=== PATIENT | male | born 1940 | race Caucasian/White ===

== ENCOUNTER 2018-07-16 11:53 | Outpatient (CLI) | payer MEDICARE ==
--- NOTE | 2018-07-16 12:24 | RAD ---
LEFT HIP TWO VIEWS: History: hip pain FINDINGS: Mild joint space narrowing. Moderate osteophytosis. Femoral head contours are maintained. No acute fr acture, dislocation, or aggressive osseous erosions. IMPRESSION: Mild osteoarthritic changes left hip. POS: RADHA
--- NOTE | 2018-07-16 12:28 | RAD ---
AP PELVIS ONE VIEW: History: Pelvic pain. FINDINGS: Mild degenerative changes of the hips. Degenerative changes lower lumbar spine partially visualized. Sacral ala and pelvic rings are intact. IMPRESSION: No acute osseous abnormalities are demonstrated. POS: RADHA
== END 2018-07-16 11:54 | disposition home or self-care (01) ==
LOC: MADRAD 11:53
PROVIDERS: ATTEND General Practice
DX: M25.552 Pain in left hip (principal); M16.12 Unilateral primary osteoarthritis, left hip
CPT/HCPCS: 72170

== ENCOUNTER 2021-05-29 18:15 | Inpatient (IN) | payer MEDICARE ==
[2021-05-29] MEDS ORDERED: Acetaminophen 325 MG TAB ONE (18:32)
[2021-05-29] MEDS ORDERED: Acetaminophen 650 MG Suppository ONE (18:34)
[2021-05-29 19:25] LABS: ALT (SGPT) 18 U/L (8-55); AST (SGOT) 22 U/L (5-34); Albumin 3.8 g/dL (3.4-4.8); Alkaline Phosphatase 58 U/L (40-110); Anion Gap 14 mmol/L (10-20); BUN (Urea Nitrogen) 31 mg/dL (8.4-25.7); Calc. Creatinine Clearance 0 mL/min (70-130); Calcium 10.1 mg/dL (7.8-10.44); Carbon Dioxide 27 mmol/L (23-31); Chloride 103 mmol/L (98-107); Globulin 3.4 g/dL (2.4-3.5); Glucose 292 mg/dL (83-110); Potassium 3.7 mmol/L (3.5-5.1); Protein, Total 7.2 g/dL (5.8-8.1); Sodium 140 mmol/L (136-145)
[2021-05-29 19:32] LABS: Band 11 % (5-11); Hemoglobin 16.1 g/dL (14.0-18.0); Lymphocytes 8 % (21-51); MDiff Complete? YES; Mean Corpuscular HGB CONC 33.5 g/dL (32.0-36.0); Mean Corpuscular Hemoglobin 32.7 pg (27.0-31.0); Mean Corpuscular Volume 97.4 fL (78.0-98.0); Mean Platelet Volume 9.6 fL (7.4-10.4); Monocytes 4 % (0-10); Neutrophil 77 % (42-75); Platelet Count 105 thou/uL (130-400); Platelet Morphology Comment Appears Decreased; RBC Distribution Width 11.7 % (11.5-14.5); RBC Morphology Normal; Red Blood Cell (RBC) Count 4.94 mill/uL (4.70-6.10); White Blood Cell (WBC) Count 3.4 thou/uL (4.8-10.8)
[2021-05-29 19:58] LABS: Bilirubin Negative (Negative); Blood, Urine Moderate (Negative); Clarity Slightly Cloudy (Clear); Glucose, Urine (Dipstick) >=1000 mg/dL (Negative); Ketone, Urine 15 mg/dL (Negative); Leukocyte Negative (Negative); Nitrite Negative (Negative); Protein, Urine (Dipstick) 100 mg/dL (Neg-Trace)
[2021-05-29] MEDS ORDERED: Sodium Chloride 0.9% 2,000 ML ONE (19:58)
[2021-05-29] MEDS ORDERED: Vancomycin HCl 500 MG VIAL ONE (19:58)
[2021-05-29] MEDS ORDERED: Azithromycin 500 MG VIAL ONE (20:00)
[2021-05-29] MEDS ORDERED: Sodium Chloride 0.9% 100 ML ONE (20:00)
[2021-05-29 20:04] LABS: Bacteria/HPF Rare-Few HPF (None Seen); Mucous/LPF 2+ LPF (<2+); WBC/HPF 0-3 HPF (0-3)
[2021-05-29] MEDS ORDERED: Cefepime 2 GM VIAL ONE (20:05)
[2021-05-29] MEDS ORDERED: Dextrose 5% in Water 250 ML ONE (20:05)
[2021-05-29 20:28] LABS: SARS-CoV-2 NAA Rapid Test Not Detected (NotDetected)
[2021-05-30] MEDS ORDERED: Acetaminophen 650 MG Suppository PR PRN (00:55)
[2021-05-30] MEDS ORDERED: Acetaminophen 325 MG TAB PO PRN (00:55)
[2021-05-30] MEDS ORDERED: Ondansetron PF 4 MG/2 ML Vial IVP PRN (00:56)
[2021-05-30] MEDS ORDERED: Senokot S 8.6-50 MG TAB PO PRN (00:57)
[2021-05-30] MEDS ORDERED: HYDROcodone/Acetaminophen 5/325 mg Tablet PO PRN ×2 (01:00)
[2021-05-30 01:07] VITALS: BMI 21.6
[2021-05-30] MEDS: Sodium Chloride 0.9% 1,000 ML IV SCH ×4 (01:28→23:08)
[2021-05-30] MEDS ORDERED: cefTRIAXone\\ROCEPHIN 1 GM in Sodium Chloride 0.9% 100 ML IVPB SCH (02:00)
[2021-05-30] MEDS: cefTRIAXone\\ROCEPHIN 1 GM in Sodium Chloride 0.9% 100 ML IVPB SCH (03:00)
[2021-05-30 05:38] LABS: Lactic Acid 1.2 mmol/L (0.5-2.2)
[2021-05-30 05:42] LABS: Anion Gap 9 mmol/L (10-20); BUN (Urea Nitrogen) 26 mg/dL (8.4-25.7); Calc. Creatinine Clearance 77 mL/min (70-130); Calcium 8.8 mg/dL (7.8-10.44); Carbon Dioxide 27 mmol/L (23-31); Chloride 109 mmol/L (98-107); Glucose 200 mg/dL (83-110); Potassium 3.4 mmol/L (3.5-5.1); Sodium 142 mmol/L (136-145)
[2021-05-30 05:43] LABS: MDiff Complete? YES; Mean Corpuscular HGB CONC 34.8 g/dL (32.0-36.0); Mean Corpuscular Hemoglobin 33.5 pg (27.0-31.0); Mean Corpuscular Volume 96.1 fL (78.0-98.0); Mean Platelet Volume 8.6 fL (7.4-10.4); Platelet Count 90 thou/uL (130-400); RBC Distribution Width 11.4 % (11.5-14.5); White Blood Cell (WBC) Count 3.5 thou/uL (4.8-10.8)
[2021-05-30 05:44] LABS: Anisocytosis SLIGHT = 6-15 cells (100X) (0-5/hpf); Lymphocytes 19 % (21-51); Monocytes 6 % (0-10); Neutrophil 75 % (42-75); Platelet Morphology Comment Appears Adequate
[2021-05-30] MEDS: Levothyroxine Sodium 88 MCG TAB PO SCH (06:43)
[2021-05-30] MEDS: Dorzolamide HCl 2% Ophth Soln 10 ml Bottle EA EYE SCH (09:06)
[2021-05-30] MEDS ORDERED: Dextrose 50% Abboject 50 ML SYRINGE SLOW IVP PRN (09:07)
[2021-05-30] MEDS: Brimonidine Tartrate 0.2% Ophth Soln 5 ml Bottle EA EYE SCH (09:23)
[2021-05-30] MEDS: Loratadine 10 MG TAB PO SCH (09:41)
[2021-05-30] MEDS: Multivitamin W/ Minerals 1 TAB PO SCH (09:41)
[2021-05-30] MEDS: Timolol 0.5% Ophth Soln 5 ml Bottle EA EYE SCH ×2 (09:42→20:27)
[2021-05-30] MEDS: Azithromycin 500 MG in Sodium Chloride 0.9% 250 ML 250 ML IVPB SCH (20:20)
[2021-05-30] MEDS ORDERED: Azithromycin 500 MG VIAL ONE (20:21)
[2021-05-30] MEDS: Rosuvastatin 10 MG TAB PO SCH (20:27)
[2021-05-30] MEDS: Latanoprost 0.005% Ophth Soln 2.5 ml Bottle EA EYE SCH (20:27)
[2021-05-31] MEDS: cefTRIAXone\\ROCEPHIN 1 GM in Sodium Chloride 0.9% 100 ML IVPB SCH (03:22)
[2021-05-31] MEDS: Levothyroxine Sodium 88 MCG TAB PO SCH (05:22)
[2021-05-31 05:42] LABS: Anion Gap 11 mmol/L (10-20); BUN (Urea Nitrogen) 25 mg/dL (8.4-25.7); Calc. Creatinine Clearance 79 mL/min (70-130); Calcium 8.3 mg/dL (7.8-10.44); Carbon Dioxide 24 mmol/L (23-31); Chloride 112 mmol/L (98-107); Glucose 220 mg/dL (83-110); Potassium 3.3 mmol/L (3.5-5.1); Sodium 144 mmol/L (136-145)
[2021-05-31 05:46] LABS: Hemoglobin 12.9 g/dL (14.0-18.0); Mean Corpuscular HGB CONC 34.8 g/dL (32.0-36.0); Mean Corpuscular Hemoglobin 33.3 pg (27.0-31.0); Mean Corpuscular Volume 95.7 fL (78.0-98.0); Platelet Count 93 thou/uL (130-400); RBC Distribution Width 11.5 % (11.5-14.5); Red Blood Cell (RBC) Count 3.88 mill/uL (4.70-6.10); White Blood Cell (WBC) Count 4.5 thou/uL (4.8-10.8)
[2021-05-31 05:47] LABS: %Eosinophils 0.4 % (0.0-10.0); %Lymphocytes 7.6 % (21.0-51.0); %Monocytes 7.7 % (0.0-10.0); %Neutrophils 83.3 % (42.0-75.0)
[2021-05-31 05:48] LABS: #Lymphocytes 0.3 thou/uL (1.20-3.40); #Monocytes 0.3 thou/uL (0.11-0.59); #Neutrophils 3.7 thou/uL (1.40-6.50)
[2021-05-31] MEDS: Sodium Chloride 0.9% 1,000 ML IV SCH ×2 (06:25→09:13)
[2021-05-31] MEDS: Loratadine 10 MG TAB PO SCH (09:08)
[2021-05-31] MEDS: Dorzolamide HCl 2% Ophth Soln 10 ml Bottle EA EYE SCH (09:08)
[2021-05-31] MEDS: Multivitamin W/ Minerals 1 TAB PO SCH (09:08)
[2021-05-31] MEDS: Timolol 0.5% Ophth Soln 5 ml Bottle EA EYE SCH ×2 (09:08→20:33)
[2021-05-31] MEDS: Brimonidine Tartrate 0.2% Ophth Soln 5 ml Bottle EA EYE SCH (09:09)
[2021-05-31] MEDS: VOLTAREN 50 MG PO SCH ×2 (15:10→20:35)
[2021-05-31] MEDS: GALANTAMINE 8 MG PO SCH ×2 (15:10→20:35)
[2021-05-31] MEDS: Azithromycin 500 MG in Sodium Chloride 0.9% 250 ML 250 ML IVPB SCH (20:33)
[2021-05-31] MEDS: Rosuvastatin 10 MG TAB PO SCH (20:34)
[2021-05-31] MEDS: Latanoprost 0.005% Ophth Soln 2.5 ml Bottle EA EYE SCH (20:34)
[2021-06-01] MEDS: cefTRIAXone\\ROCEPHIN 1 GM in Sodium Chloride 0.9% 100 ML IVPB SCH (03:48)
[2021-06-01] MEDS: Levothyroxine Sodium 88 MCG TAB PO SCH (05:33)
[2021-06-01] MEDS: Multivitamin W/ Minerals 1 TAB PO SCH (09:07)
[2021-06-01] MEDS: Brimonidine Tartrate 0.2% Ophth Soln 5 ml Bottle EA EYE SCH (09:07)
[2021-06-01] MEDS: Loratadine 10 MG TAB PO SCH (09:07)
[2021-06-01] MEDS: GALANTAMINE 8 MG PO SCH ×2 (09:09→20:24)
[2021-06-01] MEDS: VOLTAREN 50 MG PO SCH ×2 (09:09→20:24)
[2021-06-01] MEDS: Timolol 0.5% Ophth Soln 5 ml Bottle EA EYE SCH ×2 (09:09→20:21)
[2021-06-01] MEDS: Dorzolamide HCl 2% Ophth Soln 10 ml Bottle EA EYE SCH (09:11)
[2021-06-01] MEDS ORDERED: clonazePAM 0.5 MG TAB PO PRN (16:31)
[2021-06-01] MEDS: Azithromycin 500 MG in Sodium Chloride 0.9% 250 ML 250 ML IVPB SCH (20:19)
[2021-06-01] MEDS: Latanoprost 0.005% Ophth Soln 2.5 ml Bottle EA EYE SCH (20:21)
[2021-06-01] MEDS: Rosuvastatin 10 MG TAB PO SCH (20:32)
[2021-06-02] MEDS: cefTRIAXone\\ROCEPHIN 1 GM in Sodium Chloride 0.9% 100 ML IVPB SCH (02:24)
[2021-06-02] MEDS: Levothyroxine Sodium 88 MCG TAB PO SCH (04:59)
[2021-06-02 05:44] LABS: #Eosinphils 0.1 thou/uL (0.0-0.7); #Lymphocytes 0.5 thou/uL (1.20-3.40); #Monocytes 0.3 thou/uL (0.11-0.59); #Neutrophils 5.2 thou/uL (1.40-6.50); %Basophils 0.7 % (0.0-1.0); %Eosinophils 1.2 % (0.0-10.0); %Lymphocytes 8.3 % (21.0-51.0); %Monocytes 5.1 % (0.0-10.0); %Neutrophils 84.6 % (42.0-75.0); Hemoglobin 14.1 g/dL (14.0-18.0); Mean Corpuscular HGB CONC 34.9 g/dL (32.0-36.0); Mean Corpuscular Hemoglobin 32.8 pg (27.0-31.0); Mean Corpuscular Volume 94.1 fL (78.0-98.0); Mean Platelet Volume 7.5 fL (7.4-10.4); Platelet Count 123 thou/uL (130-400); RBC Distribution Width 11.3 % (11.5-14.5); Red Blood Cell (RBC) Count 4.31 mill/uL (4.70-6.10); White Blood Cell (WBC) Count 6.1 thou/uL (4.8-10.8)
[2021-06-02 05:56] LABS: Anion Gap 11 mmol/L (10-20); BUN (Urea Nitrogen) 20 mg/dL (8.4-25.7); Calc. Creatinine Clearance 79 mL/min (70-130); Calcium 8.7 mg/dL (7.8-10.44); Carbon Dioxide 28 mmol/L (23-31); Chloride 104 mmol/L (98-107); Glucose 172 mg/dL (83-110); Potassium 3.1 mmol/L (3.5-5.1); Sodium 140 mmol/L (136-145)
[2021-06-02] MEDS: Multivitamin W/ Minerals 1 TAB PO SCH (10:13)
[2021-06-02] MEDS: Loratadine 10 MG TAB PO SCH (10:14)
[2021-06-02] MEDS: Dorzolamide HCl 2% Ophth Soln 10 ml Bottle EA EYE SCH (10:15)
[2021-06-02] MEDS: Timolol 0.5% Ophth Soln 5 ml Bottle EA EYE SCH (10:15)
[2021-06-02] MEDS: GALANTAMINE 8 MG PO SCH (10:19)
[2021-06-02] MEDS: VOLTAREN 50 MG PO SCH (10:19)
[2021-06-02] MEDS: Brimonidine Tartrate 0.2% Ophth Soln 5 ml Bottle EA EYE SCH (10:21)
[2021-06-02] MEDS ORDERED: Potassium Chloride 20 MEQ TAB PO SCH (11:15)
[2021-06-02 13:10] VITALS: BP 102/84; TEMP 97.6
== END 2021-06-02 15:26 | disposition swing bed (61) | DRG 871 ==
LOC: MADERS 18:15 → MADMS 20:54
PROVIDERS: ADMIT Family Medicine; ATTEND Family Medicine
DX: A41.9 Sepsis, unspecified organism (principal); J18.9 Pneumonia, unspecified organism; E87.2 Acidosis; N30.00 Acute cystitis without hematuria; G30.9 Alzheimer's disease, unspecified; F02.80 Dementia in other diseases classified elsewhere, unspecified severity, without behavioral disturbance, psychotic disturbance, mood disturbance, and anxiety; E11.9 Type 2 diabetes mellitus without complications; E03.9 Hypothyroidism, unspecified; E78.2 Mixed hyperlipidemia; R13.10 Dysphagia, unspecified; K22.70 Barrett's esophagus without dysplasia; R26.81 Unsteadiness on feet; H40.9 Unspecified glaucoma; Z79.899 Other long term (current) drug therapy
CPT/HCPCS: 0240U; 36415; 36416; 51702; 71045; 80048; 80053; 81003; 81015; 83605; 85025; 87040; 87086; 96365; 96368; J0456; J0692; J0696; J3370; J3490; J7050; J7070

== ENCOUNTER 2021-06-02 13:21 | Inpatient (IN) | payer MEDICARE ==
[2021-06-02] MEDS ORDERED: Ondansetron ODT 4 MG TAB PO PRN (15:13)
[2021-06-02] MEDS ORDERED: Acetaminophen 325 MG TAB PO PRN (15:13)
[2021-06-02] MEDS: clonazePAM 0.5 MG TAB PO PRN (20:39)
[2021-06-02] MEDS: Famotidine 20 MG TAB PO SCH (20:39)
[2021-06-03] MEDS: Levothyroxine Sodium 88 MCG TAB PO SCH (05:14)
[2021-06-03] MEDS ORDERED: Timolol 0.5% Ophth Soln 5 ml Bottle EA EYE SCH (09:00)
[2021-06-03] MEDS ORDERED: Timolol 0.25% Ophth Soln 5 ml Bottle EA EYE SCH (09:00)
[2021-06-03] MEDS: VOLTAREN PO SCH ×3 (09:21→20:03)
[2021-06-03] MEDS: Rosuvastatin 10 MG TAB PO SCH (09:22)
[2021-06-03] MEDS: Multivit, Therapeutic 1 TAB PO SCH (09:23)
[2021-06-03] MEDS: Potassium Chloride 10 MEQ TAB PO SCH (09:23)
[2021-06-03] MEDS: Famotidine 20 MG TAB PO SCH ×2 (09:23→20:02)
[2021-06-03] MEDS: Timolol 0.5% Ophth Soln 5 ml Bottle EA EYE SCH ×2 (09:24→20:02)
[2021-06-03] MEDS: Loratadine 10 MG TAB PO SCH (09:24)
[2021-06-03] MEDS: Latanoprost 0.005% Ophth Soln 2.5 ml Bottle EA EYE SCH (09:25)
[2021-06-03] MEDS: Brimonidine Tartrate 0.2% Ophth Soln 5 ml Bottle EA EYE SCH (09:25)
[2021-06-03] MEDS: Dorzolamide HCl 2% Ophth Soln 10 ml Bottle EA EYE SCH (09:26)
[2021-06-03] MEDS: clonazePAM 0.5 MG TAB PO PRN (20:01)
[2021-06-04] MEDS: Levothyroxine Sodium 88 MCG TAB PO SCH (05:15)
[2021-06-04] MEDS: Timolol 0.5% Ophth Soln 5 ml Bottle EA EYE SCH ×2 (09:31→21:07)
[2021-06-04] MEDS: Rosuvastatin 10 MG TAB PO SCH (09:32)
[2021-06-04] MEDS: Multivit, Therapeutic 1 TAB PO SCH (09:32)
[2021-06-04] MEDS: Famotidine 20 MG TAB PO SCH ×2 (09:33→21:04)
[2021-06-04] MEDS: Potassium Bicarbonate/Cit Ac 20 MEQ TAB PO SCH ×2 (09:33→10:02)
[2021-06-04] MEDS: Loratadine 10 MG TAB PO SCH (09:33)
[2021-06-04] MEDS: Potassium Chloride 10 MEQ TAB PO SCH (09:34)
[2021-06-04] MEDS: VOLTAREN PO SCH ×2 (09:37→21:07)
[2021-06-04] MEDS: Dorzolamide HCl 2% Ophth Soln 10 ml Bottle EA EYE SCH (09:39)
[2021-06-04] MEDS: Brimonidine Tartrate 0.2% Ophth Soln 5 ml Bottle EA EYE SCH (09:42)
[2021-06-04] MEDS: Latanoprost 0.005% Ophth Soln 2.5 ml Bottle EA EYE SCH (09:42)
[2021-06-04] MEDS ORDERED: Potassium Chloride 20 MEQ TAB PO SCH (10:00)
[2021-06-05] MEDS: Levothyroxine Sodium 88 MCG TAB PO SCH (05:39)
[2021-06-05] MEDS: Bisacodyl 5 MG TAB PO PRN (06:16)
[2021-06-05] MEDS: Brimonidine Tartrate 0.2% Ophth Soln 5 ml Bottle EA EYE SCH (08:32)
[2021-06-05] MEDS: Rosuvastatin 10 MG TAB PO SCH (08:33)
[2021-06-05] MEDS: Dorzolamide HCl 2% Ophth Soln 10 ml Bottle EA EYE SCH (08:33)
[2021-06-05] MEDS: Latanoprost 0.005% Ophth Soln 2.5 ml Bottle EA EYE SCH (08:33)
[2021-06-05] MEDS: Timolol 0.5% Ophth Soln 5 ml Bottle EA EYE SCH ×2 (08:33→20:32)
[2021-06-05] MEDS: Famotidine 20 MG TAB PO SCH ×2 (08:34→20:30)
[2021-06-05] MEDS: Multivit, Therapeutic 1 TAB PO SCH (08:34)
[2021-06-05] MEDS: Potassium Chloride 20 MEQ TAB PO SCH (08:34)
[2021-06-05] MEDS: Loratadine 10 MG TAB PO SCH (08:35)
[2021-06-05] MEDS: VOLTAREN PO SCH ×2 (08:37→20:32)
[2021-06-05] MEDS: clonazePAM 0.5 MG TAB PO PRN (15:27)
[2021-06-05] MEDS ORDERED: clonazePAM 0.5 MG TAB PO SCH (20:30)
[2021-06-05] MEDS: Ketotifen Fumarate 0.025% Ophth Soln 5 ml Bottle EA EYE SCH (20:30)
[2021-06-06] MEDS: Levothyroxine Sodium 88 MCG TAB PO SCH (06:14)
[2021-06-06] MEDS: Bisacodyl 5 MG TAB PO PRN (06:14)
[2021-06-06] MEDS: Famotidine 20 MG TAB PO SCH ×2 (08:29→20:26)
[2021-06-06] MEDS: Loratadine 10 MG TAB PO SCH (08:29)
[2021-06-06] MEDS: Multivit, Therapeutic 1 TAB PO SCH (08:29)
[2021-06-06] MEDS: Potassium Chloride 20 MEQ TAB PO SCH (08:29)
[2021-06-06] MEDS: VOLTAREN PO SCH ×2 (08:30→20:26)
[2021-06-06] MEDS: Brimonidine Tartrate 0.2% Ophth Soln 5 ml Bottle EA EYE SCH (08:31)
[2021-06-06] MEDS: Latanoprost 0.005% Ophth Soln 2.5 ml Bottle EA EYE SCH (08:31)
[2021-06-06] MEDS: Dorzolamide HCl 2% Ophth Soln 10 ml Bottle EA EYE SCH (08:31)
[2021-06-06] MEDS: Timolol 0.5% Ophth Soln 5 ml Bottle EA EYE SCH ×2 (08:31→20:27)
[2021-06-06] MEDS: Ketotifen Fumarate 0.025% Ophth Soln 5 ml Bottle EA EYE SCH ×2 (08:31→20:26)
[2021-06-06] MEDS: Rosuvastatin 10 MG TAB PO SCH (08:33)
[2021-06-07] MEDS: Levothyroxine Sodium 88 MCG TAB PO SCH (05:18)
[2021-06-07] MEDS: Potassium Chloride 20 MEQ TAB PO SCH (08:11)
[2021-06-07] MEDS: Loratadine 10 MG TAB PO SCH (08:11)
[2021-06-07] MEDS: Rosuvastatin 10 MG TAB PO SCH (08:11)
[2021-06-07] MEDS: Multivit, Therapeutic 1 TAB PO SCH (08:11)
[2021-06-07] MEDS: Famotidine 20 MG TAB PO SCH ×2 (08:12→21:29)
[2021-06-07] MEDS: VOLTAREN PO SCH ×2 (08:14→21:35)
[2021-06-07] MEDS: Brimonidine Tartrate 0.2% Ophth Soln 5 ml Bottle EA EYE SCH (09:15)
[2021-06-07] MEDS: Timolol 0.5% Ophth Soln 5 ml Bottle EA EYE SCH ×2 (09:21→21:39)
[2021-06-07] MEDS: Dorzolamide HCl 2% Ophth Soln 10 ml Bottle EA EYE SCH (09:24)
[2021-06-07] MEDS: Ketotifen Fumarate 0.025% Ophth Soln 5 ml Bottle EA EYE SCH ×2 (09:27→21:39)
[2021-06-07] MEDS: Latanoprost 0.005% Ophth Soln 2.5 ml Bottle EA EYE SCH (09:32)
[2021-06-07] MEDS: clonazePAM 0.5 MG TAB PO PRN (15:00)
[2021-06-08] MEDS: Levothyroxine Sodium 88 MCG TAB PO SCH (05:42)
[2021-06-08 05:46] LABS: #Eosinphils 0.1 thou/uL (0.0-0.7); #Lymphocytes 0.6 thou/uL (1.20-3.40); #Monocytes 0.5 thou/uL (0.11-0.59); #Neutrophils 5.2 thou/uL (1.40-6.50); %Basophils 0.7 % (0.0-1.0); %Lymphocytes 8.8 % (21.0-51.0); %Monocytes 6.9 % (0.0-10.0); %Neutrophils 81.5 % (42.0-75.0); Hemoglobin 13.3 g/dL (14.0-18.0); Mean Corpuscular Hemoglobin 32.2 pg (27.0-31.0); Mean Corpuscular Volume 97.4 fL (78.0-98.0); Mean Platelet Volume 7.1 fL (7.4-10.4); Platelet Count 229 thou/uL (130-400); RBC Distribution Width 11.5 % (11.5-14.5); Red Blood Cell (RBC) Count 4.13 mill/uL (4.70-6.10); White Blood Cell (WBC) Count 6.4 thou/uL (4.8-10.8)
[2021-06-08 05:58] LABS: Anion Gap 14 mmol/L (10-20); BUN (Urea Nitrogen) 25 mg/dL (8.4-25.7); Calc. Creatinine Clearance 71 mL/min (70-130); Carbon Dioxide 28 mmol/L (23-31); Chloride 104 mmol/L (98-107); Glucose 137 mg/dL (83-110); Sodium 142 mmol/L (136-145)
[2021-06-08] MEDS: Rosuvastatin 10 MG TAB PO SCH (08:18)
[2021-06-08] MEDS: Potassium Chloride 20 MEQ TAB PO SCH (08:18)
[2021-06-08] MEDS: Multivit, Therapeutic 1 TAB PO SCH (08:18)
[2021-06-08] MEDS: Loratadine 10 MG TAB PO SCH (08:18)
[2021-06-08] MEDS: Famotidine 20 MG TAB PO SCH ×2 (08:19→20:01)
[2021-06-08] MEDS: Brimonidine Tartrate 0.2% Ophth Soln 5 ml Bottle EA EYE SCH (08:22)
[2021-06-08] MEDS: Dorzolamide HCl 2% Ophth Soln 10 ml Bottle EA EYE SCH (08:22)
[2021-06-08] MEDS: Timolol 0.5% Ophth Soln 5 ml Bottle EA EYE SCH ×2 (08:22→20:02)
[2021-06-08] MEDS: VOLTAREN PO SCH ×2 (08:23→20:01)
[2021-06-08] MEDS: Ketotifen Fumarate 0.025% Ophth Soln 5 ml Bottle EA EYE SCH ×2 (08:23→20:03)
[2021-06-08] MEDS: Latanoprost 0.005% Ophth Soln 2.5 ml Bottle EA EYE SCH (08:25)
[2021-06-09] MEDS: Levothyroxine Sodium 88 MCG TAB PO SCH (05:52)
[2021-06-09] MEDS: Rosuvastatin 10 MG TAB PO SCH (08:26)
[2021-06-09] MEDS: Loratadine 10 MG TAB PO SCH (08:27)
[2021-06-09] MEDS: Potassium Chloride 20 MEQ TAB PO SCH (08:28)
[2021-06-09] MEDS: Famotidine 20 MG TAB PO SCH ×2 (08:28→20:27)
[2021-06-09] MEDS: VOLTAREN PO SCH ×2 (08:31→20:29)
[2021-06-09] MEDS: Brimonidine Tartrate 0.2% Ophth Soln 5 ml Bottle EA EYE SCH (08:32)
[2021-06-09] MEDS: Dorzolamide HCl 2% Ophth Soln 10 ml Bottle EA EYE SCH (08:32)
[2021-06-09] MEDS: Ketotifen Fumarate 0.025% Ophth Soln 5 ml Bottle EA EYE SCH ×2 (08:33→20:28)
[2021-06-09] MEDS: Latanoprost 0.005% Ophth Soln 2.5 ml Bottle EA EYE SCH (08:33)
[2021-06-09] MEDS: Timolol 0.5% Ophth Soln 5 ml Bottle EA EYE SCH ×2 (08:34→20:28)
[2021-06-09] MEDS: Multivit, Therapeutic 1 TAB PO SCH (13:20)
[2021-06-10] MEDS: Bisacodyl 5 MG TAB PO PRN (05:48)
[2021-06-10] MEDS: Levothyroxine Sodium 88 MCG TAB PO SCH (05:48)
[2021-06-10] MEDS: Brimonidine Tartrate 0.2% Ophth Soln 5 ml Bottle EA EYE SCH (07:31)
[2021-06-10] MEDS: Potassium Chloride 20 MEQ TAB PO SCH (07:32)
[2021-06-10] MEDS: Loratadine 10 MG TAB PO SCH (08:05)
[2021-06-10] MEDS: Famotidine 20 MG TAB PO SCH ×2 (08:06→20:20)
[2021-06-10] MEDS: Multivit, Therapeutic 1 TAB PO SCH (08:06)
[2021-06-10] MEDS: Rosuvastatin 10 MG TAB PO SCH (08:06)
[2021-06-10] MEDS: Dorzolamide HCl 2% Ophth Soln 10 ml Bottle EA EYE SCH (08:09)
[2021-06-10] MEDS: VOLTAREN PO SCH ×2 (08:11→20:27)
[2021-06-10] MEDS: Latanoprost 0.005% Ophth Soln 2.5 ml Bottle EA EYE SCH (08:13)
[2021-06-10] MEDS: Timolol 0.5% Ophth Soln 5 ml Bottle EA EYE SCH ×3 (08:18→20:32)
[2021-06-10] MEDS: Ketotifen Fumarate 0.025% Ophth Soln 5 ml Bottle EA EYE SCH ×2 (08:18→20:35)
[2021-06-11] MEDS: Levothyroxine Sodium 88 MCG TAB PO SCH (05:21)
[2021-06-11] MEDS: Famotidine 20 MG TAB PO SCH ×2 (07:49→21:09)
[2021-06-11] MEDS: Multivit, Therapeutic 1 TAB PO SCH (07:50)
[2021-06-11] MEDS: Rosuvastatin 10 MG TAB PO SCH (07:50)
[2021-06-11] MEDS: Potassium Chloride 20 MEQ TAB PO SCH (07:50)
[2021-06-11] MEDS: Loratadine 10 MG TAB PO SCH (07:50)
[2021-06-11] MEDS: VOLTAREN PO SCH ×2 (07:51→21:15)
[2021-06-11] MEDS: Latanoprost 0.005% Ophth Soln 2.5 ml Bottle EA EYE SCH (07:54)
[2021-06-11] MEDS: Ketotifen Fumarate 0.025% Ophth Soln 5 ml Bottle EA EYE SCH ×2 (08:04→21:12)
[2021-06-11] MEDS: Brimonidine Tartrate 0.2% Ophth Soln 5 ml Bottle EA EYE SCH (08:05)
[2021-06-11] MEDS: Timolol 0.5% Ophth Soln 5 ml Bottle EA EYE SCH ×2 (08:05→21:13)
[2021-06-11] MEDS: Dorzolamide HCl 2% Ophth Soln 10 ml Bottle EA EYE SCH (08:05)
[2021-06-11] MEDS: Bisacodyl 5 MG TAB PO PRN (21:08)
[2021-06-12] MEDS: Levothyroxine Sodium 88 MCG TAB PO SCH ×2 (06:15→06:21)
[2021-06-12] MEDS: Rosuvastatin 10 MG TAB PO SCH (09:04)
[2021-06-12] MEDS: Famotidine 20 MG TAB PO SCH ×2 (09:05→20:33)
[2021-06-12] MEDS: Loratadine 10 MG TAB PO SCH (09:05)
[2021-06-12] MEDS: Potassium Chloride 20 MEQ TAB PO SCH (09:05)
[2021-06-12] MEDS: Multivit, Therapeutic 1 TAB PO SCH (09:06)
[2021-06-12] MEDS: Latanoprost 0.005% Ophth Soln 2.5 ml Bottle EA EYE SCH (09:07)
[2021-06-12] MEDS: Dorzolamide HCl 2% Ophth Soln 10 ml Bottle EA EYE SCH (09:07)
[2021-06-12] MEDS: VOLTAREN PO SCH ×2 (09:07→20:31)
[2021-06-12] MEDS: Ketotifen Fumarate 0.025% Ophth Soln 5 ml Bottle EA EYE SCH ×2 (09:08→20:30)
[2021-06-12] MEDS: Timolol 0.5% Ophth Soln 5 ml Bottle EA EYE SCH ×2 (09:08→20:32)
[2021-06-12] MEDS: Brimonidine Tartrate 0.2% Ophth Soln 5 ml Bottle EA EYE SCH (09:08)
[2021-06-13] MEDS: Levothyroxine Sodium 88 MCG TAB PO SCH (06:08)
[2021-06-13] MEDS: VOLTAREN PO SCH ×2 (09:39→21:00)
[2021-06-13] MEDS: Loratadine 10 MG TAB PO SCH (09:43)
[2021-06-13] MEDS: Potassium Chloride 20 MEQ TAB PO SCH (09:43)
[2021-06-13] MEDS: Famotidine 20 MG TAB PO SCH ×2 (09:43→21:30)
[2021-06-13] MEDS: Multivit, Therapeutic 1 TAB PO SCH (09:43)
[2021-06-13] MEDS: Rosuvastatin 10 MG TAB PO SCH (09:44)
[2021-06-13] MEDS: Dorzolamide HCl 2% Ophth Soln 10 ml Bottle EA EYE SCH (09:47)
[2021-06-13] MEDS: Brimonidine Tartrate 0.2% Ophth Soln 5 ml Bottle EA EYE SCH (09:54)
[2021-06-13] MEDS: Latanoprost 0.005% Ophth Soln 2.5 ml Bottle EA EYE SCH (10:00)
[2021-06-13] MEDS: Timolol 0.5% Ophth Soln 5 ml Bottle EA EYE SCH ×2 (10:07→21:30)
[2021-06-13] MEDS: Ketotifen Fumarate 0.025% Ophth Soln 5 ml Bottle EA EYE SCH ×2 (10:07→21:30)
[2021-06-13] MEDS: Nystatin Cream 15 GM TUBE TOP SCH (21:30)
[2021-06-14] MEDS: Levothyroxine Sodium 88 MCG TAB PO SCH (05:38)
[2021-06-14] MEDS: Multivit, Therapeutic 1 TAB PO SCH (07:59)
[2021-06-14] MEDS: Rosuvastatin 10 MG TAB PO SCH (08:00)
[2021-06-14] MEDS: Loratadine 10 MG TAB PO SCH (08:00)
[2021-06-14] MEDS: Famotidine 20 MG TAB PO SCH ×2 (08:00→20:52)
[2021-06-14] MEDS: Potassium Chloride 20 MEQ TAB PO SCH (08:01)
[2021-06-14] MEDS: Brimonidine Tartrate 0.2% Ophth Soln 5 ml Bottle EA EYE SCH (08:02)
[2021-06-14] MEDS: Dorzolamide HCl 2% Ophth Soln 10 ml Bottle EA EYE SCH (08:03)
[2021-06-14] MEDS: Ketotifen Fumarate 0.025% Ophth Soln 5 ml Bottle EA EYE SCH ×2 (08:03→20:52)
[2021-06-14] MEDS: Nystatin Cream 15 GM TUBE TOP SCH ×2 (08:04→20:52)
[2021-06-14] MEDS: Latanoprost 0.005% Ophth Soln 2.5 ml Bottle EA EYE SCH (08:04)
[2021-06-14] MEDS: VOLTAREN PO SCH ×2 (08:05→20:52)
[2021-06-14] MEDS: Timolol 0.5% Ophth Soln 5 ml Bottle EA EYE SCH ×2 (08:06→20:52)
[2021-06-15 05:40] LABS: Anion Gap 12 mmol/L (10-20); BUN (Urea Nitrogen) 30 mg/dL (8.4-25.7); Calc. Creatinine Clearance 61 mL/min (70-130); Calcium 9.2 mg/dL (7.8-10.44); Carbon Dioxide 30 mmol/L (23-31); Chloride 103 mmol/L (98-107); Glucose 135 mg/dL (83-110); Potassium 4.1 mmol/L (3.5-5.1); Sodium 141 mmol/L (136-145)
[2021-06-15] MEDS: Levothyroxine Sodium 88 MCG TAB PO SCH (05:43)
[2021-06-15] MEDS: Potassium Chloride 20 MEQ TAB PO SCH (09:17)
[2021-06-15] MEDS: Timolol 0.5% Ophth Soln 5 ml Bottle EA EYE SCH ×2 (09:18→21:51)
[2021-06-15] MEDS: Loratadine 10 MG TAB PO SCH (09:18)
[2021-06-15] MEDS: VOLTAREN PO SCH ×2 (09:18→21:52)
[2021-06-15] MEDS: Multivit, Therapeutic 1 TAB PO SCH (09:18)
[2021-06-15] MEDS: Rosuvastatin 10 MG TAB PO SCH (09:18)
[2021-06-15] MEDS: Latanoprost 0.005% Ophth Soln 2.5 ml Bottle EA EYE SCH (09:19)
[2021-06-15] MEDS: Brimonidine Tartrate 0.2% Ophth Soln 5 ml Bottle EA EYE SCH (09:19)
[2021-06-15] MEDS: Dorzolamide HCl 2% Ophth Soln 10 ml Bottle EA EYE SCH (09:20)
[2021-06-15] MEDS: Ketotifen Fumarate 0.025% Ophth Soln 5 ml Bottle EA EYE SCH ×2 (09:20→21:51)
[2021-06-15] MEDS: Famotidine 20 MG TAB PO SCH ×2 (09:21→21:51)
[2021-06-15] MEDS: Nystatin Cream 15 GM TUBE TOP SCH ×2 (09:48→22:20)
[2021-06-16] MEDS: Levothyroxine Sodium 88 MCG TAB PO SCH (05:15)
[2021-06-16 05:46] LABS: Anion Gap 12 mmol/L (10-20); BUN (Urea Nitrogen) 33 mg/dL (8.4-25.7); Calc. Creatinine Clearance 65 mL/min (70-130); Calcium 9.3 mg/dL (7.8-10.44); Carbon Dioxide 31 mmol/L (23-31); Chloride 101 mmol/L (98-107); Glucose 127 mg/dL (83-110); Potassium 4.3 mmol/L (3.5-5.1); Sodium 140 mmol/L (136-145)
[2021-06-16] MEDS: VOLTAREN PO SCH ×2 (08:19→20:49)
[2021-06-16] MEDS: Loratadine 10 MG TAB PO SCH (08:21)
[2021-06-16] MEDS: Famotidine 20 MG TAB PO SCH ×2 (08:21→20:48)
[2021-06-16] MEDS: Potassium Chloride 20 MEQ TAB PO SCH (08:22)
[2021-06-16] MEDS: Latanoprost 0.005% Ophth Soln 2.5 ml Bottle EA EYE SCH (08:23)
[2021-06-16] MEDS: Brimonidine Tartrate 0.2% Ophth Soln 5 ml Bottle EA EYE SCH (08:32)
[2021-06-16] MEDS: Dorzolamide HCl 2% Ophth Soln 10 ml Bottle EA EYE SCH (08:33)
[2021-06-16] MEDS: Timolol 0.5% Ophth Soln 5 ml Bottle EA EYE SCH ×2 (08:33→20:50)
[2021-06-16] MEDS: Rosuvastatin 10 MG TAB PO SCH (08:35)
[2021-06-16] MEDS: Multivit, Therapeutic 1 TAB PO SCH (08:36)
[2021-06-16] MEDS: Ketotifen Fumarate 0.025% Ophth Soln 5 ml Bottle EA EYE SCH ×2 (08:36→20:48)
[2021-06-16] MEDS: Nystatin Cream 15 GM TUBE TOP SCH ×2 (08:37→20:48)
[2021-06-16 16:35] VITALS: BMI 20.6
[2021-06-16 22:22] LABS: Bilirubin Negative (Negative); Blood, Urine Trace (Negative); Clarity Clear (Clear); Glucose, Urine (Dipstick) Negative (Negative); Ketone, Urine Negative (Negative); Leukocyte Negative (Negative); Nitrite Negative (Negative); Protein, Urine (Dipstick) Negative (Neg-Trace); Urobilinogen > or = 8.0 mg/dL (Less than 2); pH, Urine 7.5 (5.0-9.0)
[2021-06-16 22:53] LABS: Bacteria/HPF None Seen HPF (None Seen); Transitional Epithelial 0-3 HPF (None Seen); WBC/HPF 0-3 HPF (0-3)
[2021-06-17] MEDS: Levothyroxine Sodium 88 MCG TAB PO SCH (06:28)
[2021-06-17] MEDS: Latanoprost 0.005% Ophth Soln 2.5 ml Bottle EA EYE SCH (09:15)
[2021-06-17] MEDS: Famotidine 20 MG TAB PO SCH ×2 (09:17→20:13)
[2021-06-17] MEDS: Rosuvastatin 10 MG TAB PO SCH (09:17)
[2021-06-17] MEDS: Multivit, Therapeutic 1 TAB PO SCH (09:18)
[2021-06-17] MEDS: Potassium Chloride 20 MEQ TAB PO SCH (09:18)
[2021-06-17] MEDS: Loratadine 10 MG TAB PO SCH (09:18)
[2021-06-17] MEDS: VOLTAREN PO SCH ×2 (09:19→20:15)
[2021-06-17] MEDS: Brimonidine Tartrate 0.2% Ophth Soln 5 ml Bottle EA EYE SCH (09:20)
[2021-06-17] MEDS: Timolol 0.5% Ophth Soln 5 ml Bottle EA EYE SCH ×2 (09:22→20:19)
[2021-06-17] MEDS: Ketotifen Fumarate 0.025% Ophth Soln 5 ml Bottle EA EYE SCH ×2 (09:22→20:13)
[2021-06-17] MEDS: Dorzolamide HCl 2% Ophth Soln 10 ml Bottle EA EYE SCH (09:22)
[2021-06-17] MEDS: Nystatin Cream 15 GM TUBE TOP SCH ×2 (09:24→20:14)
[2021-06-18] MEDS: Levothyroxine Sodium 88 MCG TAB PO SCH (06:27)
[2021-06-18] MEDS: Potassium Chloride 20 MEQ TAB PO SCH (07:58)
[2021-06-18] MEDS: Rosuvastatin 10 MG TAB PO SCH (07:59)
[2021-06-18] MEDS: Famotidine 20 MG TAB PO SCH ×2 (07:59→20:39)
[2021-06-18] MEDS: Loratadine 10 MG TAB PO SCH (08:00)
[2021-06-18] MEDS: VOLTAREN PO SCH ×2 (08:02→20:40)
[2021-06-18] MEDS: Dorzolamide HCl 2% Ophth Soln 10 ml Bottle EA EYE SCH (08:05)
[2021-06-18] MEDS: Timolol 0.5% Ophth Soln 5 ml Bottle EA EYE SCH ×2 (08:11→20:40)
[2021-06-18] MEDS: Brimonidine Tartrate 0.2% Ophth Soln 5 ml Bottle EA EYE SCH (08:11)
[2021-06-18] MEDS: Latanoprost 0.005% Ophth Soln 2.5 ml Bottle EA EYE SCH (08:11)
[2021-06-18] MEDS: Ketotifen Fumarate 0.025% Ophth Soln 5 ml Bottle EA EYE SCH ×2 (08:11→20:40)
[2021-06-18] MEDS: Multivit, Therapeutic 1 TAB PO SCH (08:12)
[2021-06-18] MEDS: Nystatin Cream 15 GM TUBE TOP SCH ×2 (08:12→20:41)
[2021-06-19] MEDS: Levothyroxine Sodium 88 MCG TAB PO SCH (05:48)
[2021-06-19] MEDS: Rosuvastatin 10 MG TAB PO SCH (08:49)
[2021-06-19] MEDS: Multivit, Therapeutic 1 TAB PO SCH (08:49)
[2021-06-19] MEDS: Potassium Chloride 20 MEQ TAB PO SCH (08:50)
[2021-06-19] MEDS: Loratadine 10 MG TAB PO SCH (08:50)
[2021-06-19] MEDS: Famotidine 20 MG TAB PO SCH ×2 (08:52→20:42)
[2021-06-19] MEDS: Brimonidine Tartrate 0.2% Ophth Soln 5 ml Bottle EA EYE SCH (08:53)
[2021-06-19] MEDS: Ketotifen Fumarate 0.025% Ophth Soln 5 ml Bottle EA EYE SCH ×2 (08:53→20:42)
[2021-06-19] MEDS: Latanoprost 0.005% Ophth Soln 2.5 ml Bottle EA EYE SCH (08:53)
[2021-06-19] MEDS: Dorzolamide HCl 2% Ophth Soln 10 ml Bottle EA EYE SCH (08:53)
[2021-06-19] MEDS: VOLTAREN PO SCH ×2 (08:54→20:42)
[2021-06-19] MEDS: Timolol 0.5% Ophth Soln 5 ml Bottle EA EYE SCH ×2 (08:54→20:42)
[2021-06-19] MEDS: Nystatin Cream 15 GM TUBE TOP SCH ×2 (09:01→20:41)
[2021-06-20] MEDS: Levothyroxine Sodium 88 MCG TAB PO SCH (06:04)
[2021-06-20] MEDS: Multivit, Therapeutic 1 TAB PO SCH (08:58)
[2021-06-20] MEDS: Rosuvastatin 10 MG TAB PO SCH (08:58)
[2021-06-20] MEDS: Loratadine 10 MG TAB PO SCH (08:58)
[2021-06-20] MEDS: Famotidine 20 MG TAB PO SCH ×2 (08:59→20:51)
[2021-06-20] MEDS: Potassium Chloride 20 MEQ TAB PO SCH (08:59)
[2021-06-20] MEDS: Brimonidine Tartrate 0.2% Ophth Soln 5 ml Bottle EA EYE SCH (09:01)
[2021-06-20] MEDS: Dorzolamide HCl 2% Ophth Soln 10 ml Bottle EA EYE SCH (09:01)
[2021-06-20] MEDS: Latanoprost 0.005% Ophth Soln 2.5 ml Bottle EA EYE SCH (09:02)
[2021-06-20] MEDS: Ketotifen Fumarate 0.025% Ophth Soln 5 ml Bottle EA EYE SCH ×2 (09:02→20:50)
[2021-06-20] MEDS: VOLTAREN PO SCH ×2 (09:03→20:51)
[2021-06-20] MEDS: Nystatin Cream 15 GM TUBE TOP SCH ×2 (09:03→20:51)
[2021-06-20] MEDS: Timolol 0.5% Ophth Soln 5 ml Bottle EA EYE SCH ×2 (09:03→20:50)
[2021-06-21] MEDS: Levothyroxine Sodium 88 MCG TAB PO SCH (06:21)
[2021-06-21 07:14] VITALS: BP 111/69; TEMP 97.6
[2021-06-21] MEDS: Potassium Chloride 20 MEQ TAB PO SCH (08:36)
[2021-06-21] MEDS: Loratadine 10 MG TAB PO SCH (08:36)
[2021-06-21] MEDS: Multivit, Therapeutic 1 TAB PO SCH (08:36)
[2021-06-21] MEDS: Rosuvastatin 10 MG TAB PO SCH (08:37)
[2021-06-21] MEDS: Latanoprost 0.005% Ophth Soln 2.5 ml Bottle EA EYE SCH (08:37)
[2021-06-21] MEDS: Famotidine 20 MG TAB PO SCH (08:37)
[2021-06-21] MEDS: Brimonidine Tartrate 0.2% Ophth Soln 5 ml Bottle EA EYE SCH (08:38)
[2021-06-21] MEDS: Timolol 0.5% Ophth Soln 5 ml Bottle EA EYE SCH (08:38)
[2021-06-21] MEDS: Ketotifen Fumarate 0.025% Ophth Soln 5 ml Bottle EA EYE SCH (08:39)
[2021-06-21] MEDS: Dorzolamide HCl 2% Ophth Soln 10 ml Bottle EA EYE SCH (08:40)
[2021-06-21] MEDS: VOLTAREN PO SCH (09:06)
[2021-06-21] MEDS: Nystatin Cream 15 GM TUBE TOP SCH (09:09)
== END 2021-06-21 14:02 | DRG 92 ==
LOC: MADMS 15:27
PROVIDERS: ADMIT Family Medicine; ATTEND Family Medicine
DX: R26.81 Unsteadiness on feet (principal); F02.81 Dementia in other diseases classified elsewhere, unspecified severity, with behavioral disturbance; R53.1 Weakness; G30.9 Alzheimer's disease, unspecified; K22.70 Barrett's esophagus without dysplasia; E11.9 Type 2 diabetes mellitus without complications; R13.10 Dysphagia, unspecified; H40.9 Unspecified glaucoma; E03.9 Hypothyroidism, unspecified; E78.2 Mixed hyperlipidemia; E87.6 Hypokalemia; F41.9 Anxiety disorder, unspecified; R45.1 Restlessness and agitation; Z79.899 Other long term (current) drug therapy; Z98.890 Other specified postprocedural states
CPT/HCPCS: 36415; 36416; 80048; 81001; 85025